=== PATIENT | female | born 1985 | race Asian ===

== ENCOUNTER 2017-05-22 10:19 | Emergency (ER) | payer MEDICARE, MEDICAID ==
[~2017-05-22] VITALS: Ht 165.1 cm; Wt 70.0 kg
[2017-05-22 10:29] VITALS: BP 105/57
== END 2017-05-22 11:48 | disposition left against medical advice (07) ==
LOC: ER 10:52
DX: Z04.1 Encounter for examination and observation following transport accident (principal); M54.2 Cervicalgia; M25.512 Pain in left shoulder; M79.603 Pain in arm, unspecified; Z53.21 Procedure and treatment not carried out due to patient leaving prior to being seen by health care provider